=== PATIENT | male | born 1955 | race Caucasian/White ===

== ENCOUNTER → 2018-01-25 11:19 | Outpatient (CLI) | payer OTHER, SELFPAY ==
[2018-01-25 14:40] LABS: AST(SGOT) 17 U/L (15-37); Alanine Aminotransfer ALT/SGPT 30 U/L (16-61); Cholesterol 209 mg/dL (200); High Density Lipoprotein 47 mg/dL; Triglycerides 91 mg/dL; Very Low Density Lipoprotein 18 mg/dL (5-40)
== END ==
PROVIDERS: Family Provider Family Medicine; PCP Family Medicine; Visit Provider Family Medicine
DX: E78.00 Pure hypercholesterolemia, unspecified (principal)
CPT/HCPCS: 36415; 80061; 84450; 84460

== ENCOUNTER → 2020-01-17 16:02 | Outpatient (CLI) | payer MEDICARE, BC, SELFPAY ==
[2020-01-17 18:33] LABS: AST(SGOT) 23 U/L (15-37); Alanine Aminotransfer ALT/SGPT 34 U/L (16-61); Cholesterol 202 mg/dL (200); High Density Lipoprotein 60 mg/dL; Triglycerides 123 mg/dL; Very Low Density Lipoprotein 25 mg/dL (5-40)
== END ==
PROVIDERS: PCP Family Medicine; Referring Provider Family Medicine; Visit Provider Family Medicine
DX: I10 Essential (primary) hypertension (principal); E78.5 Hyperlipidemia, unspecified
CPT/HCPCS: 36415; 80061; 84450; 84460

== ENCOUNTER 2022-02-03 16:14 | Outpatient (CLI) | payer MEDICARE, BC, SELFPAY ==
[2022-02-03 18:16] LABS: AST(SGOT) 25 U/L (15-37); Alanine Aminotransfer ALT/SGPT 29 U/L (16-61); Cholesterol 174 mg/dL (200); High Density Lipoprotein 57 mg/dL; PSA,Total - Annual Screen 0.57 ng/mL (0.00-4.00); Triglycerides 84 mg/dL; Very Low Density Lipoprotein 17 mg/dL (5-40)
== END 2022-02-03 23:59 | disposition home or self-care (01) ==
LOC: MFPLAB 16:17
PROVIDERS: PCP Family Medicine; Referring Provider Family Medicine; Visit Provider Family Medicine
DX: Z00.00 Encounter for general adult medical examination without abnormal findings (principal); E78.00 Pure hypercholesterolemia, unspecified; Z12.5 Encounter for screening for malignant neoplasm of prostate
CPT/HCPCS: 36415; 80061; 84153; 84450; 84460; G0103

== ENCOUNTER → 2022-11-16 | Outpatient (CLI) | payer MEDICARE, BC, SELFPAY ==
[2022-11-16 12:51] LABS: AST(SGOT) 13 U/L (15-37); Alanine Aminotransfer ALT/SGPT 33 U/L (16-61); Cholesterol 209 mg/dL (200); High Density Lipoprotein 67 mg/dL; Triglycerides 121 mg/dL; Very Low Density Lipoprotein 24 mg/dL (5-40)
== END | disposition home or self-care (01) ==
LOC: MFPLAB 10:35
PROVIDERS: PCP Family Medicine; Referring Provider Family Medicine; Visit Provider Family Medicine
DX: E78.00 Pure hypercholesterolemia, unspecified (principal)
CPT/HCPCS: 36415; 80061; 84450; 84460

== ENCOUNTER 2024-07-10 10:35 | Emergency (ER) | payer MEDICARE, SELFPAY ==
[2024-07-10 10:36] VITALS: BP 175/101; PULSE 63; RESP 22; TEMP 36.6; O2SAT 98; BMI 29.2
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
[2024-07-10] MEDS: Famotidine 20 MG Tablet 40 MG PO (10:44)
[2024-07-10] MEDS: DiphenhydrAMINE 50 MG/ML Syringe 25 MG IV (10:44)
[2024-07-10] MEDS: dexAMETHasone 10 MG/ML Vial IV (10:45)
[2024-07-10 11:36] VITALS: BP 118/99; PULSE 81; RESP 20; O2SAT 99
[2024-07-10 12:00] VITALS: BP 155/94; PULSE 59; RESP 19; O2SAT 98
[2024-07-10 13:00] VITALS: BP 147/97; O2SAT 98
[2024-07-10 13:19] VITALS: BP 147/98; PULSE 57; RESP 18; TEMP 36.6; O2SAT 99
== END 2024-07-10 13:20 | disposition home or self-care (01) ==
PROVIDERS: Emergency Provider Emergency Medicine; PCP Family Medicine; Visit Provider Emergency Medicine
DX: S00.562A Insect bite (nonvenomous) of oral cavity, initial encounter (principal); K14.8 Other diseases of tongue; X58.XXXA Exposure to other specified factors, initial encounter; T63.441A Toxic effect of venom of bees, accidental (unintentional), initial encounter
CPT/HCPCS: 96374; 96375; 99282; A4216

== ENCOUNTER → 2024-10-19 | Outpatient (CLI) | payer MEDICARE, SELFPAY ==
[2024-10-19 12:28] LABS: Cholesterol 208 mg/dL (200); High Density Lipoprotein 61 mg/dL; PSA,Total - Annual Screen 0.61 ng/mL (0.00-4.00); Triglycerides 86 mg/dL; Very Low Density Lipoprotein 17 mg/dL (5-40)
[2024-10-19 12:57] LABS: Hemoglobin A1c 6.2 % (3.8-5.6)
== END | disposition home or self-care (01) ==
LOC: MFPLAB 09:55
PROVIDERS: PCP Family Medicine
DX: E78.00 Pure hypercholesterolemia, unspecified (principal); Z12.5 Encounter for screening for malignant neoplasm of prostate
CPT/HCPCS: 36415; 80061; 83036; 84153; G0103